=== PATIENT | female | born 1960 | race Asian ===

== ENCOUNTER 2016-09-01 19:28 | Emergency (ER) | payer BC ==
[~2016-09-01] VITALS: Ht 167.6 cm; Wt 77.4 kg
[~2016-09-01 19:28] MED LIST: AUGMENTIN875 MG PO; PRAVACHOL10 MG PO
[2016-09-01 20:34] LABS: HEMATOCRIT 40.7 % (36.0-46.0); MCH 32.2 PG (29.0-34.0); MCHC 35.9 G/DL (30.0-36.0); MCV 89.6 FL (83-99); MEAN PLAT.VOLUME 9.3 uM^3 (9.5-12.4); PLATELET COUNT 258 K/uL (156-360); RBC DIS.WIDTH-CV 12.2 % (11.8-14.6); RED BLOOD COUNT 4.54 M/uL (3.80-5.20); WHITE BLOOD COUNT 9.2 K/uL (4.1-10.2)
[2016-09-01 21:02] LABS: CHLORIDE 107 mEq/L (99-109); POTASSIUM 3.8 mEq/L (3.7-5.4); SODIUM 142 mEq/L (136-147)
[2016-09-01 21:04] LABS: GLUCOSE 110 mg/dL (70-99)
[2016-09-01 21:05] LABS: ANION GAP 11 MEQ/L (2-14)
[2016-09-01 21:08] LABS: ALKALINE PHOSPHATASE 119 IU/L (3-129); GFR ESTIMATE (CALCULATED) > 59 mL/min/
[2016-09-01 21:09] LABS: UREA NITROGEN (BUN) 15 mg/dL (9-23)
[2016-09-01 21:10] LABS: TROP-I INTERPRETATION NEGATIVE; TROPONIN-I < 0.01 ng/mL (0.0-0.30)
[2016-09-01 21:11] LABS: LIPASE 37 U/L (1.0-51.0)
[2016-09-01] MEDS ORDERED: ZOFRAN4 MG PO (21:54)
[2016-09-01] MEDS ORDERED: ZANTAC150 MG PO (21:54)
[2016-09-01 22:00] VITALS: BP 146/96
== END 2016-09-01 22:02 | disposition home or self-care (01) ==
LOC: EME 19:28
PROVIDERS: Physician Assistant
DX: R10.13 Epigastric pain (principal)
CPT/HCPCS: 71020; 80053; 83690; 84484; 85027; 93005; 99281; 99285